=== PATIENT | female | born 1975 | race Caucasian/White ===

== ENCOUNTER 2019-04-22 19:44 | Inpatient (IN) ==
[2019-04-22] MEDS ORDERED: ASPIRIN 325 MG TABLET PO STA (20:12)
[2019-04-22 20:21] LABS: Basophils % 0.3 % (0.0-0.8); Eosinophils # 0.1 10*3/uL (0.0-0.87); Eosinophils % 0.3 % (0.00-10.9); Hematocrit 29.9 VOL% (35.7-47.0); Hemoglobin 10.3 GM/DL (12.0-16.0); Immature Granulocytes % 3.2 %; Immature Granulocytes Absolute 0.47 #; Lymphocytes # 1.4 10*3/uL (1.4-4.0); Lymphocytes % 9.1 % (21.3-54.2); Mean Corpuscular HGB Conc 34.4 GM/DL (32-36); Mean Corpuscular Volume 85.2 FL (87-102); Mean Platelet Volume 10.1 FL (9.6-12.0); Monocytes % 2.9 % (1.7-12.7); Neutrophils % 84.2 % (38.7-73.9); Platelet Count 174 T/CUMM (130-400); Red Blood Count 3.51 MC/CUMM (3.8-5.5); Red Cell Distribution Width 13.7 % (9.3-17.3); White Blood Count 14.9 T/CUMM (4-12)
[2019-04-22 20:47] LABS: Albumin 3.4 G/DL (3.4-5.0); Bilirubin,Total 1.6 MG/DL (0.2-1.0); Calcium 7.5 MG/DL (8.5-10.1); Osmolality,Calculated 281.8 MOS/KG (273-304); Total Protein 6.7 G/DL (6.4-8.3)
[2019-04-22] MEDS ORDERED: SODIUM CHLORIDE 0.9% 1,000 ML IV STA (20:51)
[2019-04-22] MEDS ORDERED: AZITHROMYCIN INJ 500 MG in SODIUM CHLORIDE 0.9% 250 ML IV STA (20:52)
[2019-04-22] MEDS ORDERED: cefTRIAXone 1,000 MG in SODIUM CHLORIDE 0.9% 100 ML IV STA (20:52)
[2019-04-22 20:55] LABS: Band Neutrophils 4 % (0-10); Lymphocytes 5 % (20-55); Platelet Estimate Normal; Segmented Neutrophils 90 % (50-85); Total Cells Counted 100
[2019-04-22 20:56] LABS: Hypochromasia Slight; Microcytosis 1+; Polychromasia 1+
[2019-04-22 20:57] LABS: Anisocytosis 2+; Ovalocytes Few; Poikilocytosis Slight
[2019-04-22 20:58] LABS: Tear Drop Cells Few
[2019-04-22] MEDS ORDERED: LACTATED RINGERS 2,000 ML IV ONE (21:30)
[2019-04-22 22:01] LABS: Apearance,Urine CLOUDY (Clear); Bacteria,Urine Many /HPF (Few); Blood, Urine Small mg/dL (Negative); Glucose,Urine (UA) Negative (Negative); Ketones,Urine Negative (Negative); Mucus,Urine Occasional /LPF (Occasional); Nitrite,Urine Negative (Negative); Protein,Urine 100 MG/DL; RBC,Urine 8 /HPF (0-4); Squamous Epithelial Cell,Urine Moderate /HPF (0-10); Urine Color Amber (Yellow); Urine Specific Gravity 1.026 (1.001-1.035); WBC,Urine 58 /HPF (0-6)
[2019-04-22 22:06] LABS: Bilirubin,Urine Small mg/dL (Negative)
[2019-04-22 23:22] LABS: % Iron Saturation 6.9 % (18-50)
[2019-04-22 23:40] LABS: PT Patient Result 10.9 SECS (9.6-12.2); Partial Thromboplastin Time 34.6 SECS (20.8-36.0)
[2019-04-22] MEDS ORDERED: LACTATED RINGERS 1,000 ML IV ONE (23:50)
[2019-04-23] MEDS ORDERED: DEXTROSE 50% 25 GM/50 ML VIAL IV PRN
[2019-04-23] MEDS ORDERED: NOREPINEPHRINE 8 MG in SODIUM CHLORIDE 0.9% 242 ML IV PRN
[2019-04-23] MEDS ORDERED: ALBUTEROL 2.5 MG/3 ML NEB RESP TX PRN
[2019-04-23] MEDS ORDERED: GLUCAGON 1 MG VIAL IM PRN
[2019-04-23] MEDS ORDERED: ONDANSETRON 4 MG/2 ML VIAL IV PRN
[2019-04-23 00:18] LABS: Hepatitis B Core IgM Quant 0.09 Index; Hepatitis B Surface Ag Quant < 0.10 Index; Hepatitis B Surface Ag Result Negative (Negative); Hepatitis C Virus Ab Quant 0.17 Index; Hepatitis C Virus Ab Result Negative (Negative)
[2019-04-23 05:51] LABS: Basophils % 0.2 % (0.0-0.8); Eosinophils % 0.4 % (0.00-10.9); Hematocrit 27.1 VOL% (35.7-47.0); Hemoglobin 9.2 GM/DL (12.0-16.0); Immature Granulocytes % 9.1 %; Immature Granulocytes Absolute 0.99 #; Lymphocytes # 0.9 10*3/uL (1.4-4.0); Lymphocytes % 8.6 % (21.3-54.2); Mean Corpuscular HGB Conc 33.9 GM/DL (32-36); Mean Corpuscular Volume 85.8 FL (87-102); Mean Platelet Volume 10.2 FL (9.6-12.0); Monocytes % 3.8 % (1.7-12.7); Neutrophils % 77.9 % (38.7-73.9); Platelet Count 144 T/CUMM (130-400); Red Blood Count 3.16 MC/CUMM (3.8-5.5); Red Cell Distribution Width 13.5 % (9.3-17.3); White Blood Count 10.8 T/CUMM (4-12)
[2019-04-23 06:10] LABS: Albumin 2.7 G/DL (3.4-5.0); Bilirubin,Total 1.6 MG/DL (0.2-1.0); Calcium 7.6 MG/DL (8.5-10.1); Osmolality,Calculated 278.7 MOS/KG (273-304); Total Protein 6.5 G/DL (6.4-8.3)
[2019-04-23 06:13] LABS: Band Neutrophils 9 % (0-10); Lymphocytes 11 % (20-55); Segmented Neutrophils 76 % (50-85); Total Cells Counted 100
[2019-04-23 06:14] LABS: Hypochromasia 1+; Microcytosis 1+; Ovalocytes Slight
[2019-04-23] MEDS: LEVOTHYROXINE 25 MCG TABLET PO SCH (06:14)
[2019-04-23 06:15] LABS: Platelet Estimate Adequate; Tear Drop Cells Slight
[2019-04-23 06:17] LABS: Folate 9.9 NG/ML (5.4-24.0)
[2019-04-23] MEDS: POTASSIUM CHLORIDE RIDER 10 MEQ in PREMIX 1 EACH IV PRN ×4 (06:46→09:46)
[2019-04-23] MEDS: INSULIN LISPRO 100 UNIT/ML SUBCUT SCH ×2 (09:24→16:38)
[2019-04-23] MEDS: SERTRALINE 25 MG TABLET PO SCH (09:26)
[2019-04-23] MEDS: ASPIRIN EC 81 MG TABLET PO SCH (09:26)
[2019-04-23] MEDS: PANTOPRAZOLE 40 MG TABLET PO SCH (09:26)
[2019-04-23] MEDS: GABAPENTIN 100 MG CAPSULE PO SCH ×2 (09:26→21:55)
[2019-04-23] MEDS: POTASSIUM CHLORIDE 20 MEQ TABLET PO SCH ×3 (09:49→16:37)
[2019-04-23] MEDS ORDERED: cefTRIAXone 1,000 MG in SYRINGE 1 EACH IV SCH (20:00)
[2019-04-23] MEDS ORDERED: AZITHROMYCIN INJ 500 MG in SODIUM CHLORIDE 0.9% 250 ML IV SCH (21:00)
[2019-04-23] MEDS: cefTRIAXone 2,000 MG in SYRINGE 1 EACH IV SCH (23:11)
[2019-04-24 06:06] LABS: Basophils % 0.3 % (0.0-0.8); Eosinophils # 0.2 10*3/uL (0.0-0.87); Eosinophils % 1.9 % (0.00-10.9); Hemoglobin 9.5 GM/DL (12.0-16.0); Immature Granulocytes % 0.5 %; Immature Granulocytes Absolute 0.04 #; Lymphocytes # 1.6 10*3/uL (1.4-4.0); Lymphocytes % 20.1 % (21.3-54.2); Mean Corpuscular HGB Conc 33.9 GM/DL (32-36); Mean Corpuscular Volume 86.4 FL (87-102); Mean Platelet Volume 10.7 FL (9.6-12.0); Monocytes % 3.4 % (1.7-12.7); Neutrophils % 73.8 % (38.7-73.9); Platelet Count 176 T/CUMM (130-400); Red Blood Count 3.24 MC/CUMM (3.8-5.5); Red Cell Distribution Width 13.7 % (9.3-17.3)
[2019-04-24] MEDS: LEVOTHYROXINE 25 MCG TABLET PO SCH (06:24)
[2019-04-24 07:09] LABS: Calcium 7.9 MG/DL (8.5-10.1); Osmolality,Calculated 275.8 MOS/KG (273-304)
[2019-04-24] MEDS: INSULIN LISPRO 100 UNIT/ML SUBCUT SCH ×2 (08:26→16:16)
[2019-04-24] MEDS: GABAPENTIN 100 MG CAPSULE PO SCH (09:35)
[2019-04-24] MEDS: PANTOPRAZOLE 40 MG TABLET PO SCH (09:36)
[2019-04-24] MEDS: SERTRALINE 25 MG TABLET PO SCH (09:36)
[2019-04-24] MEDS: ASPIRIN EC 81 MG TABLET PO SCH (09:36)
[2019-04-24] MEDS: LISINOPRIL 2.5 MG TABLET PO SCH (16:44)
[2019-04-24] MEDS: MAGNESIUM CHLORIDE 64 MG TABLET PO SCH (16:44)
[2019-04-24] MEDS: GABAPENTIN 300 MG CAPSULE PO SCH ×3 (16:45→21:28)
[2019-04-24] MEDS: metFORMIN 500 MG TABLET PO SCH (16:45)
[2019-04-24] MEDS: LEVOFLOXACIN INJ 750 MG in PREMIX 1 EACH IV SCH (16:46)
[2019-04-24] MEDS: ENOXAPARIN 40 MG/0.4 ML SYRINGE SUBCUT SCH (21:28)
[2019-04-24] MEDS: cefTRIAXone 2,000 MG in SYRINGE 1 EACH IV SCH (21:28)
[2019-04-24] MEDS: AMITRIPTYLINE 25 MG TABLET PO SCH (21:28)
[2019-04-24] MEDS: ATORVASTATIN 80 MG TABLET PO SCH (21:28)
[2019-04-25] MEDS: LEVOTHYROXINE 25 MCG TABLET PO SCH (06:12)
[2019-04-25] MEDS: INSULIN LISPRO 100 UNIT/ML SUBCUT SCH ×2 (07:26→16:06)
[2019-04-25] MEDS: ASPIRIN EC 81 MG TABLET PO SCH (09:54)
[2019-04-25] MEDS: LISINOPRIL 2.5 MG TABLET PO SCH (09:54)
[2019-04-25] MEDS: CHOLECALCIFEROL 1,000 UNIT TABLET PO SCH (09:55)
[2019-04-25] MEDS: MAGNESIUM CHLORIDE 64 MG TABLET PO SCH (09:55)
[2019-04-25] MEDS: GABAPENTIN 300 MG CAPSULE PO SCH ×4 (09:55→20:28)
[2019-04-25] MEDS: SERTRALINE 25 MG TABLET PO SCH (09:55)
[2019-04-25] MEDS: PANTOPRAZOLE 40 MG TABLET PO SCH (09:55)
[2019-04-25] MEDS: metFORMIN 500 MG TABLET PO SCH ×2 (09:55→18:09)
[2019-04-25] MEDS: LEVOFLOXACIN INJ 750 MG in PREMIX 1 EACH IV SCH (15:26)
[2019-04-25] MEDS ORDERED: LISINOPRIL 5 MG TABLET PO SCH (17:45)
[2019-04-25] MEDS: ATORVASTATIN 80 MG TABLET PO SCH (20:28)
[2019-04-25] MEDS: cefTRIAXone 2,000 MG in SYRINGE 1 EACH IV SCH (20:29)
[2019-04-25] MEDS: ENOXAPARIN 40 MG/0.4 ML SYRINGE SUBCUT SCH (20:29)
[2019-04-25] MEDS: AMITRIPTYLINE 25 MG TABLET PO SCH (20:29)
[2019-04-26] MEDS: LEVOTHYROXINE 25 MCG TABLET PO SCH (05:15)
[2019-04-26 05:55] LABS: Basophils % 0.5 % (0.0-0.8); Eosinophils # 0.2 10*3/uL (0.0-0.87); Hematocrit 31.2 VOL% (35.7-47.0); Hemoglobin 10.8 GM/DL (12.0-16.0); Immature Granulocytes % 3.5 %; Lymphocytes # 1.7 10*3/uL (1.4-4.0); Mean Corpuscular HGB Conc 34.6 GM/DL (32-36); Mean Corpuscular Volume 84.3 FL (87-102); Mean Platelet Volume 9.9 FL (9.6-12.0); Monocytes % 6.5 % (1.7-12.7); Neutrophils % 56.5 % (38.7-73.9); Platelet Count 212 T/CUMM (130-400); Red Cell Distribution Width 13.3 % (9.3-17.3); White Blood Count 5.7 T/CUMM (4-12)
[2019-04-26 06:19] LABS: Calcium 8.9 MG/DL (8.5-10.1); Osmolality,Calculated 279.7 MOS/KG (273-304)
[2019-04-26] MEDS: MAGNESIUM CHLORIDE 64 MG TABLET PO SCH (08:27)
[2019-04-26] MEDS: CHOLECALCIFEROL 1,000 UNIT TABLET PO SCH (08:27)
[2019-04-26] MEDS: ASPIRIN EC 81 MG TABLET PO SCH (08:27)
[2019-04-26] MEDS: SERTRALINE 25 MG TABLET PO SCH (08:27)
[2019-04-26] MEDS: GABAPENTIN 300 MG CAPSULE PO SCH ×3 (08:28→16:35)
[2019-04-26] MEDS: INSULIN LISPRO 100 UNIT/ML SUBCUT SCH ×2 (08:28→16:07)
[2019-04-26] MEDS: PANTOPRAZOLE 40 MG TABLET PO SCH (08:28)
[2019-04-26] MEDS: metFORMIN 500 MG TABLET PO SCH ×2 (08:28→16:35)
[2019-04-26] MEDS ORDERED: LISINOPRIL 5 MG TABLET PO ONE (11:00)
[2019-04-26] MEDS: LEVOFLOXACIN INJ 750 MG in PREMIX 1 EACH IV SCH (14:32)
[2019-04-26 15:34] VITALS: BP 107/73
[2019-04-27] MEDS ORDERED: VITAMIN E 400 UNIT CAPSULE PO SCH (09:00)
[2019-04-27] MEDS ORDERED: LISINOPRIL 10 MG TABLET PO SCH (09:00)
== END 2019-04-26 20:28 | disposition home or self-care (01) | DRG 871 ==
LOC: EDBD → EDUNIT# → N.ED 19:44 → SUATTDRO 22:27 → N.EDINP 22:27 → N.CC 23:52 → N.2E 04-23 14:13
PROVIDERS: ADMIT Internal Medicine; ATTEND Hospitalist